=== PATIENT | male | born 1995 | race Caucasian/White ===

== ENCOUNTER 2018-07-29 02:22 | Emergency (ER) | payer OTHER ==
--- NOTE | 2018-07-29 03:00 | EDPHY ---
H & P Stated Complaint: "Pill stuck in throat", flu-like symptoms, fatigue, body chills Time Seen by Provider: 07/29/18 02:52 HPI/ROS: Chief Complaint: Foreign body sensation in throat HPI: 22-year-old male's presenting with a sensation of foreign body in his throat since he swallowed in Advil approximately an hour and half ago. Patient states he fell eyes and going down right and then has a sensation at the something stuck back there. He has had some fatigue general malaise and congestion which is why he was taken Advil. He has been able to swallow without any difficulty. Is mildly pain fill. No cough. Some subjective fevers and chills at home for the last few days. No chest pain or shortness of breath. ROS: 10 systems were reviewed and were negative except those elements noted in the HPI. PMH: Denies Social History: No smoking, no alcohol, no recreational drug use Family History: non-contributory Physical Exam: Gen: Awake, Alert, No Distress HEENT: Nose: no rhinorrhea Eyes: PERRLA, EOMI Mouth: Moist mucosa oropharynx appears normal, no foreign body appreciated Neck: Supple, no JVD, no found up with the, soft, nontender Chest: nontender, lungs clear to auscultation Heart: S1, S2 normal, no murmur Abd: Soft, non-tender, no guarding Back: no CVA tenderness, no midline tenderness Ext: no edema, non-tender Skin: no rash Neuro: CN II-XII intact, Sensation grossly intact, Strength 5/5 in bilateral upper and lower extremities - Personal History Current Tetanus Diphtheria and Acellular Pertussis (TDAP): Yes - Medical/Surgical History Hx Asthma: No Hx Chronic Respiratory Disease: No Hx Diabetes: No Hx Cardiac Disease: No Hx Renal Disease: No Hx Cirrhosis: No Hx Alcoholism: No Hx HIV/AIDS: No Hx Splenectomy or Spleen Trauma: No Other PMH: Denies - Social History Smoking Status: Never smoked Constitutional: Initial Vital Signs Temperature (C) 37.0 C 07/29/18 02:25 Heart Rate 78 07/29/18 02:25 Respiratory Rate 18 07/29/18 02:25 Blood Pressure 147/80 H 07/29/18 02:25 O2 Sat (%) 95 07/29/18 02:25 O2 Delivery Mode Room Air Allergies/Adverse Reactions: No Known Allergies Allergy (Unverified 07/29/18 02:27) Medical Decision Making ED Course/Re-evaluation: 22-year-old male with a foreign body sensation is started after swallowing in Advil. I explained to him that I think symptoms are likely secondary to an abrasion. He has no change in his voice or phonation. No difficulty swallowing whatsoever. I have offered nasopharyngoscopy at this time to rule out a foreign body. He prefers to decline. He would prefer to wait to see if symptoms resolve. I think that this is appropriate. I have instructed and return to the emergency department for any concerns. Departure - Departure Disposition: Home, Routine, Self-Care Clinical Impression: Abrasion of throat Condition: Good Instructions: Upper Respiratory Infection (ED) Additional Instructions: Return to the emergency department in 24 hr if symptoms have not improved. Follow up with primary care physician in 3-4 days for any concerns. Referrals: Carlin Renee MD [[facility] [place]] - As per Instructions
[2018-07-29 03:06] VITALS: BP 127/76
== END 2018-07-29 03:05 | disposition home or self-care (01) ==
DX: R09.89 Other specified symptoms and signs involving the circulatory and respiratory systems (principal); J06.9 Acute upper respiratory infection, unspecified